=== PATIENT | male | born 1990 | race Caucasian/White ===

== ENCOUNTER 2019-09-05 19:42 | Emergency (ER) | payer OTHER, SELFPAY ==
[~2019-09-05] VITALS: Ht 195.6 cm; Wt 133.4 kg
--- NOTE | 2019-09-05 19:57 | NUR ---
PT CAME IN CO OF FISH, CHILLS, BODY ACHES, NON PRODUCTIVE COUGH, SORE THROAT AND LEFT EYE IRRITATION. PT DENIES ANY LOSS OF VISION. PT SAYS "I THINK I HAVE BEEN HAVING FEVERS WELL. ALSO, MY EYE IS CRUSTED OVER WITH YELLOW GUNK IN THE MORNING". PT IS RESTING ON [place]. CALL LIGHT WITHIN REACH. AOX4
[2019-09-05 20:31] VITALS: BP 139/78
--- NOTE | 2019-09-05 20:31 | NUR ---
PT RESTING IN [facility]. [place]. VSS. PT IS WATCHING TV.
== END 2019-09-05 20:59 | disposition home or self-care (01) ==
LOC: ED 20:52
DX: Z03.818 Encounter for observation for suspected exposure to other biological agents ruled out (principal); J20.9 Acute bronchitis, unspecified; J06.9 Acute upper respiratory infection, unspecified; B34.9 Viral infection, unspecified; F17.210 Nicotine dependence, cigarettes, uncomplicated
CPT/HCPCS: 71045; 99406